=== PATIENT | male | born 1945 | race Caucasian/White ===

== ENCOUNTER 2019-10-15 18:44 | Emergency (ER) | payer MEDICARE, OTHER ==
[~2019-10-15] VITALS: Ht 157.5 cm; Wt 63.0 kg
[~2019-10-15 18:44] MED LIST: CALTRATE 600 +1 EAC1 PO; FINASTERIDE5 MG PO; FLOMAX0.4 MG PO; LEVOTHYROXINE75 MCG PO; LEXAPRO10 MG PO; MULTI VITAMIN1 EACH PO; SENNA8.6 MG PO; VITAMIN D5000 UNIT PO
[2019-10-15] MEDS ORDERED: LEVOCETIRIZINE D5 MG PO (19:10)
[2019-10-15] MEDS ORDERED: OMEPRAZOLE40 MG PO (19:10)
[2019-10-15] MEDS ORDERED: LEVOTHYROXINE88 MCG PO (19:11)
[2019-10-15] MEDS ORDERED: BACLOFEN10 MG PO (19:11)
[2019-10-15] MEDS ORDERED: OXYBUTYNIN CHLOR5 M1 PO (19:11)
[2019-10-15] MEDS ORDERED: LEVAQUIN750 MG PO (21:37)
== END 2019-10-15 21:57 | disposition home or self-care (01) ==
LOC: ED 18:44
DX: K52.9 Noninfective gastroenteritis and colitis, unspecified (principal); E03.9 Hypothyroidism, unspecified; Z88.2 Allergy status to sulfonamides; Z88.8 Allergy status to other drugs, medicaments and biological substances; Z79.899 Other long term (current) drug therapy; Z11.59 Encounter for screening for other viral diseases
CPT/HCPCS: 71045; 74177; 80053; 81001; 83605; 83690; 85025; 96361; 99284-25; C9803; J1100; J2405; J7030; Q9967; U0002